=== PATIENT | male | born 1985 | race Caucasian/White ===

== ENCOUNTER 2023-03-03 18:53 | Emergency (ER) | payer MEDICAID, SELFPAY ==
[2023-03-03 19:00] VITALS: BP 140/87; PULSE 104; RESP 18; TEMP 36.9; O2SAT 18; BMI 25.1
[2023-03-03 19:05] VITALS: BP 136/94; PULSE 111; RESP 18; O2SAT 97
[2023-03-03 20:42] LABS: Basophils # 0.1 10^3/uL (0.0-0.1); Basophils % 0.4 %; Eosinophils # 0.4 10^3/uL (0.0-0.8); Eosinophils % 2.8 %; Hematocrit 47.4 % (37-53); Lymphocytes # 2.4 10^3/uL (0.8-4.8); Lymphocytes % 17.6 %; Mean Corpuscular HGB Conc 32.9 g/dL (30-55); Mean Corpuscular Hemoglobin 29.1 pg (27-33); Mean Corpuscular Volume 88.4 fl (82-101); Mean Platelet Volume 10.7 fL (7.4-10.4); Monocytes # 1.4 10^3/uL (0.2-0.9); Monocytes % 10.1 %; Neutrophils # 9.29 10^3/uL (1.8-7.7); Neutrophils % 68.8 %; Nucleated Red Blood Cells % 0 %; Platelet Count 262 10^3/cmm (157-399); Red Blood Count 5.36 10^6/uL (3.85-5.65); Red Cell Distribution Width 12.6 % (12.1-15.1); White Blood Count 13.51 10^3/uL (3.29-11.43)
[2023-03-03 21:11] LABS: Alanine Aminotransferase 12 U/L (0-41); Albumin Level 4.7 g/dL (3.5-5.2); Alkaline Phosphatase 88 U/L (40-130); Anion Gap 15.7 (5-19); Aspartate Amino Transferase 15 U/L (0-40); Blood Urea Nitrogen 20 mg/dL (6-20); Calcium 9.2 mg/dL (8.5-10.5); Carbon Dioxide 25 mmol/L (22-29); Chloride 100 mmol/L (98-107); Creatine Phosphokinase 305 U/L (39-308); Globulin 2.5 g/dL (1.3-4.6); Glomerular Filtration Rate 93.9 mL/min (90-130); Glucose 142 mg/dL (65-115); Osmolality Calculated 289 mOsm/kg (285-295); Potassium 3.7 mmol/L (3.5-5.1); Sodium 137 mmol/L (136-145); Total Bilirubin 0.6 mg/dL (0.15-1.2); Total Protein 7.2 g/dL (6.6-8.7)
--- NOTE | 2023-03-03 22:38 | W.ED.GENADLT ---
HPI - General Adult General: Chief complaint: General Medical Stated complaint: Heat exhaustion Time Seen by Provider: 03/03/23 22:38 History of Present Illness: 37-year-old male patient comes in today for complaints of heat exhaustion. Patient been walking from [facility] for the last 2 days and today he was near [place] and passed out twice in the heat. Patient was given approximately 1 L of IV fluids in route to the emergency department. Patient was then put into triage and in the waiting room until we could evaluate him further in the emergency department. Patient at this time feels well except for some sunburn to his face. Associated symptoms: Deny chest pain, dyspnea, nausea or vomiting Review of Systems General: Reports: 10 or more systems reviewed and unremarkable except in HPI and below Card: Denies: chest pain Resp: Denies: dyspnea GI: Denies: abdominal pain, nausea or vomiting Physical Exam Const: COMMON NORMALS: alert HENMT: COMMON NORMALS: normocephalic HEAD & SCALP: normocephalic Neck/C-Spine: COMMON NORMALS: full ROM Resp: COMMON NORMALS: normal respiratory effort Cardio: COMMON NORMALS: regular rate RATE: regular rate GI: COMMON NORMALS: non-tender Back/Pelvis: COMMON NORMALS: thoracic and lumbar spine normal to inspection Extremity: COMMON NORMALS: normal to inspection Neuro: SENSORIUM/ORIENTATION: Yes alert Skin: COMMON NORMALS: turgor normal GENERAL SKIN EXAM: turgor normal Course Vital Signs: Vital signs: Vital Signs Temperature 98.4 F 03/03/23 19:00 Pulse Rate 111 H 03/03/23 19:05 Respiratory Rate 18 03/03/23 19:05 Blood Pressure 136/94 03/03/23 19:05 Pulse Oximetry 97 03/03/23 19:05 Oxygen Delivery Me thod Room Air 03/03/23 19:05 MDM - General Adult Medical Decision Making 37-year-old male patient comes in today for complaints of heat exhaustion. On exam patient was alert and oriented and appeared improved. Patient had been delivered to the ER by EMS after reportedly walking for 2 days in the heat. Patient became lightheaded and felt like he was going to pass out and sought EMS treatment. EMS had given the patient approximately 800 to 1000 L of crystalloid solution. Patient at this time feels improved except for a mild headache and sunburn to the face. Lungs are clear to auscultation. Patient moves all extremities well. Differential diagnosis includes but not limited to rhabdomyolysis, heat exhaustion, electrolyte imbalance, dehydration. CBC and CMP were unremarkable. Patient was able to eat and drink without difficulty and hold hold foods down. Patient was discharged from the ER to the waiting room until his ride to come and pick him up from [place]. Patient was stable at discharge. Lab Data 03/03/23 20:34 03/03/23 20:34 Laboratory Results WBC 13.51 10^3/uL (3.29-11.43) H 03/03/23 20:34 RBC 5.36 10^6/uL (3.85-5.65) 03/03/23 20:34 Hgb 15.60 g/dL (11.27-16.99) 03/03/23 20:34 Hct 47.4 % (37-53) 03/03/23 20:34 MCV 88.4 fl (82-101) 03/03/23 20: MCH 29.1 pg (27-33) 03/03/23 20:34 MCHC 32.9 g/dL (30-55) 03/03/23 20:34 RDW 12.6 % (12.1-15.1) 03/03/23 20:34 Plt Count 262 10^3/cmm (157-399) 03/03/23 20:34 MPV 10.7 fL (7.4-10.4) H 03/03/23 20:34 Neut % (Auto) 68.8 % 03/03/23 20:34 Lymph % (Auto) 17.6 % 03/03/23 20:34 Pike % (Auto) 10.1 % 03/03/23 20:34 Eos % (Auto) 2.8 % 03/03/23 20:34 Baso % (Auto) 0.4 % 03/03/23 20:34 Neut # (Auto) 9.29 10^3/uL (1.8-7.7) H 03/03/23 20:34 Lymph # (Auto) 2.4 10^3/uL (0.8-4.8) 03/03/23 20:34 Pike # (Auto) 1.4 10^3/uL (0.2-0.9) H 03/03/23 20:34 Eos # (Auto) 0.4 10^3/uL (0.0-0.8) 03/03/23 20:34 Baso # (Auto) 0.1 10^3/uL (0.0-0.1) 03/03/23 20:34 Nucleated RBC % (auto) 0 % 03/03/23 20:34 Nucleated RBCs # 0.0 /100WBC 03/03/23 20:34 Sodium 137 mmol/L (136-145) 03/03/23 20:34 Potassium 3.7 mmol/L (3.5-5.1) 03/03/23 20:34 Chloride 100 mmol/L (98-107) 03/03/23 20:34 Carbon Dioxide 25 mmol/L (22-29) 03/03/23 20:34 Anion Gap 15.7 (5-19) 03/03/23 20:34 BUN 20 mg/dL (6-20) 03/03/23 20:34 Creatinine 0.9 mg/dL (0.7-1.2) 03/03/23 20:34 GFR Calculation 93.9 mL/min (90-130) 03/03/23 20:34 Glucose 142 mg/dL (65-115) H 03/03/23 20:34 Calculated Osmolality 289 mOsm/kg (285-295) 03/03/23 20:34 Calcium 9.2 mg/dL (8.5-10.5) 03/03/23 20:34 Total Bilirubin 0.6 mg/dL (0.15-1.2) 03/03/23 20:34 AST 15 U/L (0-40) 03/03/23 20:34 ALT 12 U/L (0-41) 03/03/23 20:34 Alkaline Phosphatase 88 U/L (40-130) 03/03/23 20:34 Creatine Kinase 305 U/L (39-308) 03/03/23 20:34 Total Protein 7.2 g/dL (6.6-8.7) 03/03/23 20:34 Albumin 4.7 g/dL (3.5-5.2) 03/03/23 20:34 Globulin 2.5 g/dL (1.3-4.6) 03/03/23 20:34 Discharge Plan Discharge Patient Disposition: Home Clinical Impression: Heat collapse Qualifiers: Encounter type: initial encounter Qualified Code(s): T67.1XXA - Heat syncope, initial encounter Condition: Stable Discharge Orders: Discharge ED (Routine); Ordered 03/03/23 Ordered By: Isaiah Borja Discharge Diet: Usual diet Discharge Activity: Increase activity as tolerated Patient Instructions: Heat Exhaustion (ED) Activity Restrictions/Additional Instructions: Drink plenty of water and fluids. Healthy diet and exercise. Follow-up with primary care as needed. Continue routine medications as directed. Return to ED for new concerns Coding Level of Care Code ED Doll Wigs Hackler for Santhosh Clements
[2023-03-03] MEDS: acetaminophen 500 mg Tablet PO (22:54)
[2023-03-03] MEDS: ibuprofen 200 mg Tablet 400 MG PO (22:55)
[2023-03-03 23:11] VITALS: PULSE 110; O2SAT 97
== END 2023-03-03 23:13 | disposition home or self-care (01) ==
PROVIDERS: Emergency Medicine; Emergency Provider Nurse Practitioner Family
DX: T67.1XXA Heat syncope, initial encounter (principal); X30.XXXA Exposure to excessive natural heat, initial encounter
CPT/HCPCS: 36415; 80053; 82550; 85025; 99283